=== PATIENT | female | born 1970 | race Caucasian/White ===

== ENCOUNTER 2020-12-14 09:09 | Emergency (ER) | payer OTHER ==
[2020-12-14] MEDS ORDERED: IBUPROFEN600 MG PO (10:09)
== END 2020-12-14 10:30 | disposition home or self-care (01) ==
LOC: ER1 09:09
DX: S60.222A Contusion of left hand, initial encounter (principal); W20.8XXA Other cause of strike by thrown, projected or falling object, initial encounter
CPT/HCPCS: 73130; 99283

== ENCOUNTER → 2021-02-19 | Outpatient (CLI) | payer BC ==
[~2021-02-19] MED LIST: IBUPROFEN600 MG PO; MIRALAX PO
[2021-02-19 12:31] LABS: HEMOGLOBIN 14.3 gm/dl (12.3-15.3); RED BLOOD COUNT 4.74 M/UL (4.00-5.10); WHITE BLOOD COUNT 6.5 K/UL (4.5-11.0)
== END ==
LOC: OPSV2 11:30
PROVIDERS: Orthopaedic Surgery
DX: Z01.812 Encounter for preprocedural laboratory examination (principal); G56.02 Carpal tunnel syndrome, left upper limb; M19.042 Primary osteoarthritis, left hand
CPT/HCPCS: 80048; 81001; 85025; 87081

== ENCOUNTER → 2021-05-01 | Day surgery (SDC) | payer BC ==
[~2021-05-01] VITALS: Ht 167.6 cm; Wt 79.8 kg
[~2021-05-01] MED LIST changes: +PERCOCET 5/325 T1 EA PO
[2021-05-01 07:15] LABS: HEMOGLOBIN 12.4 gm/dl (12.3-15.3); RED BLOOD COUNT 4.04 M/UL (4.00-5.10); WHITE BLOOD COUNT 5.8 K/UL (4.5-11.0)
[2021-05-01 07:31] LABS: BUN/CREATININE RATIO 21 (0-10)
== END | disposition home or self-care (01) ==
LOC: OR 06:06
PROVIDERS: Orthopaedic Surgery
DX: M18.12 Unilateral primary osteoarthritis of first carpometacarpal joint, left hand (principal); Z79.899 Other long term (current) drug therapy; Z98.51 Tubal ligation status
CPT/HCPCS: 36415; 73140; 76000; 80048; 85025; C1713; J0171; J0690; J1100; J2001; J2250; J2405; J2704; J2795; J3010; J7030; J7120